=== PATIENT | female | born 1960 | race Caucasian/White ===

== ENCOUNTER 2020-11-04 07:08 | Outpatient (CLI) | payer OTHER, SELFPAY ==
--- NOTE | ~2020-11-04 | CT_ITS ---
EXAMINATION: CT abdomen pelvis wo/w con DATE: 11/04/2020 07:57 INDICATION: Chronic hematuria TECHNIQUE: Computed tomography (CT) of the abdomen and pelvis was performed without intravenous contr ast. CT of the abdomen and pelvis was then performed with a total of 115 mL Omnipaque 350 intravenous contrast using a double-bolus technique for simultaneous opacification of the renal parenchyma and r enal collecting system. The dose-length product (DLP) was 524.10 mGy-cm. Automated exposure control a nd iterative reconstruction technique were employed. COMPARISON: None FINDINGS: Minimal dependent atelectasis is present in the lung bases. The heart size is normal. Punct ate calcifications in an otherwise normal spleen likely represent healed granulomatous disease. The l iver, pancreas, gallbladder, and adrenal glands are normal. There is a 12 mm cyst of the right kidney . The left kidney is unremarkable. No stones are identified in the kidneys, ureters, or bladder. Ther e is no hydronephrosis or hydroureter. There are multiple phleboliths of the pelvis. No suspicious re nal or urothelial lesion is identified. The ureters do not opacify beyond the midpoint however no obs tructing lesion is identified. No pathologically enlarged abdominal or pelvic lymph nodes are identif ied. There is no free intraperitoneal gas or evidence of bowel obstruction. A large volume of colonic stool is present. There is severe spondylosis at L5-S1. IMPRESSION: 1. No CT correlate for the patient's symptoms. Reviewed, dictated and finalized at location D.
[2020-11-04 07:29] LABS: Estimated Glomerular Filt Rate > 60
== END 2020-11-04 07:09 | disposition home or self-care (01) ==
LOC: CHSIMG 07:10
PROVIDERS: PCP Family Medicine; Visit Provider Physician Assistant
DX: R31.9 Hematuria, unspecified (principal)
CPT/HCPCS: 74178; Q9967

== ENCOUNTER 2022-06-15 07:45 | Outpatient (CLI) | payer OTHER, SELFPAY ==
--- NOTE | ~2022-06-15 | CT_ITS ---
CT of the Abdomen and Pelvis: Indication: Chronic microhematuria Technique: 2.5 mm axial scans were obtained through the abdomen and pelvis prior to and following in travenous administration of 130 cc of Omnipaque 350. Dose reduction technique was used on this scan b y utilizing automated exposure control and iterative reconstruction technique. The dose-length produc t (DLP) was 534.51 mGy-cm. COMPARISON: 11/04/2020 Findings: Scans through the lung bases are unremarkable. The liver, spleen, pancreas, gallbladder, adrenals and kidneys are essentially unremarkable. Small ri ght renal cyst is of doubtful clinical significance. Ureters are incompletely opacified, but the visu alized ureters are essentially unremarkable. No evidence of aortic aneurysm. No lymphadenopathy. No bowel obstruction or bowel wall thickening. There is no evidence to suggest acute appendicitis. Images through the pelvis were performed. Urinary bladder unremarkable. No pelvic mass evident. No as cites. Impression: No significant abnormalities seen. No etiology for hematuria identified on this exam. Reviewed, dictated and finalized at [facility]. ENT SERVICES COUNSELOR Impression: No significant abnormalities seen. No etiology for hematuria identified on this exam.
[2022-06-15 08:14] LABS: Estimated Glomerular Filt Rate > 60
== END 2022-06-15 07:46 | disposition home or self-care (01) ==
LOC: CHSIMG 07:48
PROVIDERS: PCP Family Medicine; Visit Provider Nurse Practitioner
DX: R31.29 Other microscopic hematuria (principal)
CPT/HCPCS: 74178; Q9967

== ENCOUNTER 2024-06-02 12:04 | Outpatient (CLI) | payer MEDICARE, MEDICAID, SELFPAY ==
--- NOTE | ~2024-06-02 | US_ITS ---
EXAMINATION: US thyroid DATE: 06/02/2024 12:24 INDICATION: Enlarged thyroid. TECHNIQUE: Multiple ultrasound images of the thyroid were obtained. COMPARISON: None. FINDINGS: The right thyroid lobe measures 3.7 x 1.0 x 1.0 cm. The left thyroid lobe measures 2.7 x 0.7 x 1.2 c m. There is normal echotexture and echogenicity throughout the thyroid gland. No discrete nodules id entified. Normal vascular flow is present. IMPRESSION: 1. Normal thyroid. Reviewed, dictated and finalized at location A. TANK MISSILEMAN IMPRESSION: 1. Normal thyroid.
--- OUTSIDE RECORDS SUMMARY | 2024-06-02 12:57 | XMS_ITS | Clinical Summary ---
Author Organization [facility] Address [address] [place] [address] Phone Care Team Providers Care Electric Razor Mechanic Name Role Phone Avel Barone MD Primary Care Provider [phone] Emilio Cisneros APRN, RESPIRATORY SERVICES MANAGER Unavailable [phone] Medications Cholecalciferol (VITAMIN D3 PO) Take 1,000 mcg by mouth daily. Active Family History Medical History Relation Name Comments High Cholesterol Father Cancer Other Bone Coronary Artery Disease Other Diabetes Other Heart Disease Other Hypothyroidism Other Relation Name Status Comments Father Mother Other Social History Tobacco Use Types Packs/Day Years Used Date Smoking Tobacco: Every Day Cigarettes Tobacco Cessation:Ready to Q uit: Not Asked; Counseling Given: Not Answered Alcohol Use Standard Drinks/Week Comments Never 0 (1 standard drink = 0.6 oz pur e alcohol) Comments Unknown Sex and Gender Information Value Date Recorded Sex Assigned at Not on file Legal Sex Female 11:24 PM CDT Gender Identity Not on file Sexual Orientation Not on file Last Filed Vital Signs Vital Sign Reading Time Taken Comments Blood Pressure 118/78 06/12/2022 10:36 AM FIRST BEATER Pulse 77 06/12/2022 10:36 AM FIRST BEATER Temperature 36.9 ??C (98.4 ??F) 06/12/2022 10:[address] Respiratory Rate 20 06/12/2022 10:36 AM FIRST BEATER Oxygen Saturation 99% 06/12/2022 10:36 AM FIRST BEATER Inhaled Oxygen Concentration - - Weight 52.2 kg (115 lb) 06/12/2022 10:36 AM FIRST BEATER Height 175.3 cm (5' 9 ) 06/12/2022 10:36 AM FIRST BEATER Body Mass Index 16.98 06/12/2022 10:36 AM FIRST BEATER Plan of Treatment Health Maintenance Due Date Last Done Comments DEXA Bone Density 1960 Hepatitis C Virus (HCV) Screening 1960 TdaP Immunization 1960 Pneumococcal Immunization Co mbined (1 of 2 - PCV) 1965 Pneumococcal Immunization (5 0+ years) (1 of 2 - PCV) 1978 Pap Smear 1980 Cervical Cancer Screening (CCS) 1989 HPV/Cotest 1989 Colonoscopy 2004 Colorectal Cancer Screening 2004 Cologuard 2009 Immunochemical Fecal Occult Blood 2009 Mammogram 2009 Zoster Immunization (1 of 2) 2009 Influenza Immunization (#1) 2024 SARS-COV-2 Immunization ( - 2023- season) 2024 Respiratory Syncytial Virus (RSV) Immunization (Adult) (1 - 1-dose 75+ series) 2034 Hepatitis B Immunization Aged Out No longer eligible based on patient's age to complete this topic Meningococcal Immunization (ACWY) Aged Out No longer eligible based on patient's age to complete this topic Rotavirus Immunization Aged Out No lo nger eligible based on patient's age to complete this topic Insurance MEDICAID [employer] Care Teams Electric Razor Mechanic Relationship Specialty Start Date End Date Avel Barone MD [address] [place] [address] PCP - General Family Medicine 7/7/21 Emilio Cisneros, STEVAN, RESPIRATORY SERVICES MANAGER [address] [place] [id number] Nurse Practitioner Advanced Practice Nurse 06/12/22
== END 2024-06-02 12:05 | disposition home or self-care (01) ==
LOC: CHSIMG 12:06
PROVIDERS: PCP Family Medicine; Visit Provider Physician Assistant
DX: E04.9 Nontoxic goiter, unspecified (principal)
CPT/HCPCS: 76536

== ENCOUNTER 2025-01-06 07:21 | Outpatient (CLI) | payer MEDICARE, MEDICAID, SELFPAY ==
--- OUTSIDE RECORDS SUMMARY | 2025-01-06 07:25 | XMS_ITS | Clinical Summary ---
Author Organization [facility] Address [address] [place] [address] Phone Care Team Providers Care Graduate [employer] Dean Name Role Phone Avel Barone MD Primary Care Provider [phone] Emilio Cisneros APRN, DIRECTOR OF CATERING Unavailable [phone] Medications Cholecalciferol (VITAMIN D3 PO) Take 1,000 [...] Comments Blood Pressure 118/78 06/12/2022 10:36 AM CONCRETE MIXER TRUCK DRIVER Pulse 77 06/12/2022 10:36 AM CONCRETE MIXER TRUCK DRIVER Temperature 36.9 C (98.4 F) 06/12/2022 10:36 AM CONCRETE MIXER TRUCK DRIVER Respiratory Rate 20 06/12/2022 10:36 AM CONCRETE MIXER TRUCK DRIVER Oxygen Saturation 99% 06/12/2022 10:36 AM CONCRETE MIXER TRUCK DRIVER Inhaled Oxygen Concentration - - Weight 52.2 kg (115 lb) 06/12/2022 10:36 AM CONCRETE MIXER TRUCK DRIVER Height 175.3 cm (5' 9) 06/12/2022 10:36 AM CONCRETE MIXER TRUCK DRIVER Body Mass Index 16.98 06/12/2022 10:36 AM CONCRETE MIXER TRUCK DRIVER Plan of Treatment Health Maintenance Due Date Last Done Comments Hepatitis C Virus (HCV) Screening 1960 TdaP Immunization 1959 Pap Smear 1980 Cervical Cancer Screening (CCS) 1989 HPV/Cotest 1989 Cologuard 2004 Colonoscopy 2004 Colorectal Cancer Screening 2004 Immunochemical Fecal Occult Blood 2004 Pneumococcal Immunization (5 0+ years) (1 of 1 - PCV) 2009 Zoster Immunization (1 of 2) 2009 Respiratory Syncytial Virus (RSV) Immunization (Adult) (1 - Risk 60-74 years 1-dose series) 2019 SARS-COV-2 Immunization ( - 2023- season) 2024 Influenza Immunization (#1) 2025 Hepatitis B Immunization Aged Out No longer eligible based on patient's age to complete this topic Human Papillomavirus (HPV) Immunization Aged Out No longer eligible b ased on patient's age to complete this topic Meningococcal Immunization (ACWY) Aged Out No longer eligible based on patient's age to complete this topic Rotavirus Immunization Aged Out No lo nger eligible based on patient's age to complete this topic Insurance MED[employer]ID [employer] Care Teams Graduate School Dean Relationship Specialty Start Date End Date Avel Barone MD [address] [place] [address] PCP - General Family Medicine 11/09/20 Emilio Cisneros APRN, DIRECTOR OF CATERING [address] [place] [address] Nurse Practitioner Advanced Practice Nurse 06/12/22
[2025-01-06 07:32] LABS: Hematocrit 39.9 % (35.0-42.0); Hemoglobin 13.6 g/dL (11.7-13.8); Immature Granulocyte Percent A 0.3 % (0.0-0.0); Lymphocytes Absolute Auto 2.21 K/mm3 (1.10-4.50); Mean Corpuscular HGB Conc 34.1 g/dL (32-36); Mean Corpuscular Hemoglobin 30.6 pg (27.0-31.0); Mean Corpuscular Volume 89.9 fL (78.0-102.0); Nucleated Red Blood Cells Absolute Auto 0.00 K/mm3 (0.00-0.00); Nucleated Red Blood Cells Perc 0.0 % (0-0.0); Platelet Count Result 253 K/mm3 (150-420); Red Blood Count 4.44 M/mm3 (4.20-5.40); White Blood Count 6.6 K/mm3 (4.8-10.8)
[2025-01-06 08:21] LABS: Alanine Aminotransferase 14 U/L (6-35); Albumin Level 4.4 g/dL (3.5-5.1); Alkaline Phosphatase 72 U/L (38-126); Anion Gap 9 mmol/L (4-12); Aspartate Amino Transferase 25 U/L (14-36); Bilirubin,Total 0.9 mg/dL (0.2-1.3); Blood Urea Nitrogen 7 mg/dL (7-17); Calcium 9.9 mg/dL (8.4-10.2); Carbon Dioxide 26 mmol/L (22-30); Chloride 106 mmol/L (98-107); Cholesterol 217 mg/dL (0-200); Estimated Glomerular Filt Rate > 60; Glucose 106 mg/dL (65-110); HDL Direct 35 mg/dL; Osmolality Calculated 290 mOsm/kg (285-295); Potassium 4.5 mmol/L (3.4-5.0); Sodium 141 mmol/L (137-145); Total Protein 7.2 g/dL (6.3-8.2); Triglycerides 148 mg/dL (<150)
== END 2025-01-06 07:22 | disposition home or self-care (01) ==
LOC: CHSLAB 07:23
PROVIDERS: PCP Family Medicine; Visit Provider Physician Assistant
DX: E78.00 Pure hypercholesterolemia, unspecified (principal)
CPT/HCPCS: 36415; 80053; 80061; 85025

== ENCOUNTER 2025-03-09 14:18 | Outpatient (CLI) | payer MEDICARE, MEDICAID, SELFPAY ==
--- NOTE | ~2025-03-09 | US_ITS ---
EXAMINATION: US carotid duplex BI DATE: 03/09/2025 14:47 INDICATION: Lightheadedness. TECHNIQUE: Grayscale, color Doppler, and pulsed Doppler images of the cervical carotid arteries were obtained. The degree of vessel stenosis is placed in one of the following categories: normal, <50%, 50-69%, >=70% but less than near- occlusion, near-occlusion, or total occlusion. Note that percent stenosis relative to normal distal artery lumen diameter is indirectly measured from velocity measurements as described by Chris, et al. Radiology 2003; 229:340-346. Notes: Normal: Peak systolic velocity <125 centimeters/sec and no plaque <50%. Peak systolic velocity <125 (EDV <40; ICA/CCA PSV ratio <2.0; used these factors only a tandem lesions or low cardiac output or contralateral disease) 50-69 %: PSV 125-230 (EDV 40-100; ratio 2-4) >= 70% but less than near occlusion: PSV greater than 230 (EDV > 100; ratio> 4.0) Near Occlusion: PSV that is variable; markedly narrowed lumen Occlusion: Absent flow on color/spectral Doppler and no lumen on moscoso scale. COMPARISON: None. FINDINGS: RIGHT: The right common carotid artery (CCA) peak systolic velocity (PSV) is 128 cm/s. The right internal carotid artery (ICA) PSV is 149 cm/s. The right ICA end- diastolic velocity (EDV) is 34 cm/s. The right ICA/CCA PSV ratio is 1.2. The external carotid artery (ECA) PSV is 117 cm/s. There is antegrade flow in the right vertebral artery. LEFT: The left CCA PSV is 123 cm/s. The left ICA PSV is 104 cm/s. The left ICA EDV is 41 cm/s. The left ICA/CCA PSV ratio is 0.85. The ECA PSV is 90 cm/s. There is antegrade flow in the left vertebral artery. IMPRESSION: 1. Less than 50% stenosis in the right internal carotid artery by sonographic criteria. 2. Less than 50% stenosis in the left internal carotid artery by sonographic criteria. Reviewed, dictated and finalized at location O. SAFETY COORDINATOR IMPRESSION: 1. Less than 50% stenosis in the right internal carotid artery by sonographic lindsay richey. 2. Less than 50% stenosis in the left internal carotid artery by sonographic zoraida valente.
--- NOTE | 2025-03-09 14:29 | ECHO_ITS ---
Patient Info Name: Renee Bashir Age: 64 years : 1960 Gender: Female Ht: 69 in Wt: 114 lbs BSA: 1.57 m2 HR: 72 bpm BP: 121 / 69 mmHg Technical Quality: Good Exam Date: 03/09/2025 2:55 PM Patient Status: O Admit Date: 03/09/2025 Exam Type: CA echo doppler color flow Complete two-dimensional, color flow and Doppler transthoracic echocardiogram is performed. Staff Referring Physician: Satya Moreno Electrical Accessories I Assembler: Sathya Adkins III Attending Provider: Satya Moreno Summary 1. Complete two-dimensional, color flow and Doppler transthoracic echocardiogram is performed. 2. Left ventricular chamber dimension is normal. 3. Left ventricular systolic function is normal, estimated at 65-70. 4. The left ventricular diastolic function is grade I diastolic dysfunction. 5. E/e' 5 is not elevated. Left Ventricle E/e' 5 is not elevated. Left ventricular chamber dimension is normal. Left ventricular systolic function is normal, estimated at 65-70. The left ventricular diastolic function is grade I diastolic dysfunction. Right Ventricle Right ventricular chamber dimension is normal. Right ventricular systolic function is normal and with normal TAPSE 2.1 cm. Left Atria Left atrial chamber dimension is normal. Right Atria Right atrial chamber dimension is normal. Aortic Valve The aortic valve is trileaflet. There is no aortic valve stenosis. There is no aortic valve regurgitation. Pulmonic Valve There is no pulmonic regurgitation. Mitral Valve There is no mitral valve stenosis. There is no mitral valve regurgitation. Tricuspid Valve There is no tricuspid valve regurgitation. Pericardium/Pleural There is no pericardial effusion. Inferior Vena Cava Normal inferior vena cava with >50% collapse upon inspiration consistent with normal right atrial pressure, 5 mmHg. Aorta The aortic root size at the sinus of Valsalva is normal. Left Ventricular Outflow Tract Name Value Normal LVOT 2D LVOT Diameter 2.1 cm LVOT Doppler LVOT Peak Velocity 151 cm/s LVOT Peak Gradient 9 mmHg LVOT Mean Gradient 4 mmHg LVOT VTI 30 cm LVOT VTI/AV VTI Ratio 1.1 LVOT Stroke Volume 104 ml LVOT CO 7.2 l/min LVOT CI 4.6 l/min/m2 Pulmonic Valve Name Value Normal PV Doppler PV Peak Velocity 104 cm/s PV Peak Gradient 4 mmHg PV Mean Gradient 2 mmHg Mitral Valve Name Value Normal MV Doppler MV Peak Gradient 5 mmHg MV Mean Gradient 3 mmHg MV Area (Cont Eq VTI) 3.2 cm2 MV Diastolic Function MV E Peak Velocity 84 cm/s MV A Peak Velocity 91 cm/s MV E/A 0.9 MV Decel Time (PW) 393 ms MV Annular TDI MV E/e' (Septal) 5.6 MV E/e' (Lateral) 6.0 MV E/e' (Average) 5.8 Tricuspid Valve Name Value Normal Estimated PAP/RSVP RA Pressure 5 mmHg <=5 TV Annular TDI TV Lateral Mildred s' Velocity 15.0 cm/s >=9.5 Aortic Valve Name Value Normal AV Doppler AV Peak Velocity 205 cm/s AV Peak Gradient 17 mmHg AV Mean Gradient 5 mmHg AV VTI 28 cm AV Area (Cont Eq VTI) 3.7 cm2 >=3.0 AV Area (Cont Eq Edmar) 2.5 cm2 AV DI (Edmar) 0.74 AV Regurgitation 2D LVOT Area 3.4 cm2 Ventricles Name Value Normal LV Dimensions 2D/MM IVS Diastolic Thickness (2D) 0.7 cm 0.6-1.0 LVID Diastole (2D) 4.1 cm 3.8-5.2 LVIW Diastolic Thickness (2D) 0.7 cm 0.6-0.9 LVID Systole (2D) 2.5 cm 2.2-3.5 LVOT Diameter 2.1 cm LV Mass (2D Cubed) 80.35 g 67.00-162.00 LV Mass Index (2D Cubed) 51 g/m2 43-95 Relative Wall Thickness (2D) 0.37 <=0.42 LV Fractional Shortening/Ejection Fraction 2D/MM LV Fractional Shortening (2D) 39 % 27-45 LV EF (2D Teichholz) 69 % LV Diastolic Volume (4C MOD) 70 ml LV EF (4C MOD) 73 % LV Diastolic Volume (2C MOD) 66 ml LV EF (2C MOD) 71 % LV Diastolic Volume (BP MOD) 68 ml 46-106 LV Diastolic Volume Index (BP MOD) 43 ml/m2 29-61 LV Systolic Volume (BP MOD) 20 ml 14-42 LV Systolic Volume Index (BP MOD) 13 ml/m2 8-24 LV EF (BP MOD) 71 % 54-74 LV Diastolic Length (4C) 7.3 cm LV Systolic Length (4C) 5.7 cm LV Stroke Volume (4C MOD) 51 ml Atria Name Value Normal LA Dimensions LA Volume (4C A-L) 37 ml LA Volume (BP A-L) 39 ml RA Dimensions RA Systolic Major Datto Length (4C) 4.7 cm 2.2-2.8 RA Area (4C) 15.2 cm2 <=18.0 EchoPAC Name Value Normal AutoEF LVEF_4Ch_Q ([id number]) 63 % LVEF_2Ch_Q ([id number]) 66 % Report Signatures
--- OUTSIDE RECORDS SUMMARY | 2025-03-09 15:48 | XMS_ITS | Clinical Summary ---
Author Organization [facility] Address [address] [place] [address] Phone Care Team Providers Care Calender Operator Helper Name Role Phone Avel Barone MD Primary Care Provider [phone] Emilio Cisneros APRN, MULTICUT LINE OPERATOR Unavailable [phone] Medications Cholecalciferol (VITAMIN D3 PO) Take 1,000 [...] Comments Blood Pressure 118/78 06/12/2022 10:36 AM CABLE INSTALLATION MANAGER Pulse 77 06/12/2022 10:36 AM CABLE INSTALLATION MANAGER Temperature 36.9 C (98.4 F) 06/12/2022 10:36 AM CABLE INSTALLATION MANAGER Respiratory Rate 20 06/12/2022 10:36 AM CABLE INSTALLATION MANAGER Oxygen Saturation 99% 06/12/2022 10:36 AM CABLE INSTALLATION MANAGER Inhaled Oxygen Concentration - - Weight 52.2 kg (115 lb) 06/12/2022 10:36 AM CABLE INSTALLATION MANAGER Height 175.3 cm (5' 9) 06/12/2022 10:36 AM CABLE INSTALLATION MANAGER Body Mass Index 16.98 06/12/2022 10:36 AM CABLE INSTALLATION MANAGER Plan of Treatment Health Maintenance Due Date [...] - Risk 60-74 years 1-dose series) 2019 Influenza Immunization (#1) 2025 SARS-COV-2 Immunization ( - season) 2025 Hepatitis B Immunization Aged Out No [...] Insurance MED[employer]ID [employer] Care Teams Calender Operator Helper Relationship Specialty Start Date End Date Avel Barone MD [address] [place] [address] PCP - General Family Medicine 11/09/20 Emilio Cisneros APRN, MULTICUT LINE OPERATOR [address] [place] [address] Nurse Practitioner Advanced Practice Nurse 06/12/22
== END 2025-03-09 14:19 | disposition home or self-care (01) ==
LOC: CHSIMG 14:22
PROVIDERS: PCP Family Medicine; Visit Provider Physician Assistant
DX: R42 Dizziness and giddiness (principal); R07.89 Other chest pain; I50.30 Unspecified diastolic (congestive) heart failure; I65.23 Occlusion and stenosis of bilateral carotid arteries
CPT/HCPCS: 93306; 93880

== ENCOUNTER 2025-05-01 07:28 | Outpatient (CLI) | payer MEDICARE, SELFPAY ==
[2025-05-01 08:13] LABS: Alanine Aminotransferase 17 U/L (6-35); Albumin Level 4.5 g/dL (3.5-5.1); Alkaline Phosphatase 79 U/L (38-126); Anion Gap 9 mmol/L (4-12); Aspartate Amino Transferase 26 U/L (14-36); Bilirubin,Total 0.8 mg/dL (0.2-1.3); Blood Urea Nitrogen 6 mg/dL (7-17); Calcium 9.5 mg/dL (8.4-10.2); Carbon Dioxide 25 mmol/L (22-30); Chloride 106 mmol/L (98-107); Cholesterol 129 mg/dL (0-200); Estimated Glomerular Filt Rate > 60; Glucose 103 mg/dL (65-110); HDL Direct 43 mg/dL; Osmolality Calculated 287 mOsm/kg (285-295); Potassium 4.2 mmol/L (3.4-5.0); Sodium 140 mmol/L (137-145); Total Protein 6.9 g/dL (6.3-8.2); Triglycerides 83 mg/dL (<150)
[2025-05-01 08:21] LABS: Hemoglobin A1C 5.2 % (<5.7)
[2025-05-01 09:14] LABS: Thyroid Stimulating Hormone 2.110 uIU/mL (0.465-4.680)
== END 2025-05-01 07:29 | disposition home or self-care (01) ==
PROVIDERS: PCP Family Medicine; Visit Provider Physician Assistant
DX: E78.00 Pure hypercholesterolemia, unspecified (principal); E04.9 Nontoxic goiter, unspecified; R73.01 Impaired fasting glucose
CPT/HCPCS: 36415; 80053; 80061; 83036; 84443